=== PATIENT | female | born 1950 | race Hispanic/Latino ===

== ENCOUNTER 2018-01-14 07:32 | Day surgery (SDC) | payer MEDICARE, OTHER ==
[2018-01-05 14:00] VITALS: BMI 20.3
[2018-01-14] MEDS ORDERED: Propofol 10 mg/ml Inj (20 ML) ONE (08:42)
[2018-01-14 10:35] VITALS: BP 140/88; PULSE 61; RESP 18; TEMP 97.6; O2SAT 95
== END 2018-01-14 11:12 | disposition home or self-care (01) ==
LOC: ENDO 07:32
PROVIDERS: ATTEND Specialist
DX: K22.70 Barrett's esophagus without dysplasia (principal); K22.10 Ulcer of esophagus without bleeding; K31.9 Disease of stomach and duodenum, unspecified
CPT/HCPCS: 43239; 88305; 88312; 88342; J2704; J7040

== ENCOUNTER 2018-07-03 03:06 | Emergency (ER) | payer MEDICARE, OTHER ==
[2018-07-03 03:07] VITALS: BMI 20.3
[2018-07-03 03:20] VITALS: TEMP 97.8; O2SAT 100
--- NOTE | 2018-07-03 03:29 | ED PDOC ---
Arrival/HPI - General Chief Complaint: Chest Pain Time Seen by Provider: 07/03/18 03:19 Historian: Patient - History of Present Illness Narrative History of Present Illness (Text): 07/03/18 03:42 68 year old female, with past medical history of COPD, Harmon's esophagus, diverticulosis, IBS, esophageal ulcer and past surgical history of cholecystectomy and mastectomy, presents to the Emergency department accompanied by for evaluation of 2 episodes of sudden chest tightness and pain radiating to both arms and neck at 11 pm yesterday and 1 am this morning. Patient denies similar symptoms in the past prompting her to present to the Emergency department for medical evaluation. Currently, patient informs complete resolved symptoms after taking 4 baby aspirin prior to arrival. Patient denies any associated leg swelling or shortness of breath. Patient states her last meal was at 6pm yesterday. 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 Patient is unable to explain the reason behind the extensive cardiac examinations in the past. Patient denies any fevers, chills, headache, dizziness, shortness of breath, dyspnea on exertion, cough, abdominal pain, nausea, vomiting, diarrhea, back pain, or any other complaints. PMD: Dr. Zhong Time/Duration: Prior to Arrival Symptom Onset: Gradual Symptom Course: Resolved Quality: Tightness Activities at Onset: Light Context: Home Past Medical History - Provider Review Nursing Documentation Reviewed: Yes - Infectious Disease Hx of Infectious Diseases: None - Reproductive Menopause: Yes - Cardiac Hx Pacemaker: No - Pulmonary Hx Chronic Obstructive Pulmonary Disease (COPD): Yes - Neurological Hx Paralysis: No - Hematological/Oncological Hx Blood Transfusions: No Hx Blood Transfusion Reaction: No - Musculoskeletal/Rheumatological Hx Musculoskeletal Disorders: Yes - Gastrointestinal Other/Comment: IBS. Diverticulosis. barrets esophagus - Genitourinary/Gynecological Hx Genitourinary Disorders: No - Psychiatric Hx Emotional Abuse: No Hx Physical Abuse: No Hx Substance Use: No - Surgical History Hx Mastectomy: Yes (R) - Anesthesia Hx Anesthesia Reactions: Yes (GETS SAD & WEEPY; FORGETS PRE OP INSTRUCTIONS) Hx Malignant Hyperthermia: No - Suicidal Assessment Feels Threatened In Home Enviroment: No Family/Social History - Physician Review Nursing Documentation Reviewed: Yes Family/Social History: No Known Family HX Smoking Status: Never Smoked Hx Alcohol Use: Yes (SOCIALLY) Hx Substance Use: No Allergies/Home Meds Allergies/Adverse Reactions: Allergies No Known Allergies Allergy (Verified 07/03/18 03:18) Home Medications: Home Meds Medication Instructions Recorded Confirmed Fluticasone/Salmeterol 100/50 1 puff IH BID 12/06/14 07/03/18 [Advair Diskus 100/50] Montelukast [Singulair] 10 mg PO DAILY 12/06/14 07/03/18 Dexlansoprazole [Dexilant] 60 mg PO DAILY 01/14/18 07/03/18 Review of Systems - Physician Review All systems were reviewed & negative as marked: Yes - Review of Systems Constitutional: absent: Fevers Respiratory: absent: SOB, Cough Cardiovascular: Chest Pain. absent: TOVAR Gastrointestinal: absent: Abdominal Pain, Diarrhea, Nausea, Vomiting Musculoskeletal: Neck Pain. absent: Back Pain Neurological: absent: Headache, Dizziness Physical Exam Vital Signs Reviewed: Yes Vital Signs Temp Pulse Resp BP Pulse Ox 07/03/18 04:53 86 18 134/86 100 07/03/18 03:19 97.8 F 71 13 148/74 100 Temperature: Afebrile Blood Pressure: Normal Pulse: Regular Respiratory Rate: Normal Appearance: Positive for: Well-Appearing, Non-Toxic, Comfortable Pain Distress: None Mental Status: Positive for: Alert and Oriented X 3 - Systems Exam Head: Present: Atraumatic, Normocephalic Pupils: Present: PERRL Extroacular Muscles: Present: EOMI Conjunctiva: Present: Normal Mouth: Present: Moist Mucous Membranes Neck: Present: Normal Range of Motion Respiratory/Chest: Present: Clear to Auscultation, Good Air Exchange. No: Respiratory Distress, Accessory Muscle Use Cardiovascular: Present: Regular Rate and Rhythm, Normal S1, S2. No: Murmurs Abdomen: No: Tenderness, Distention, Peritoneal Signs Breast/Axillary: Present: Other (mastectomy scars bilaterally ) Back: Present: Normal Inspection Upper Extremity: Present: Normal Inspection. No: Cyanosis, Edema Lower Extremity: Present: Normal Inspection. No: Edema Neurological: Present: GCS=15, CN II-XII Intact, Speech Normal Skin: Present: Warm, Dry, Normal Color. No: Rashes Psychiatric: Present: Alert, Oriented x 3, Normal Insight, Normal Concentration Medical Decision Making ED Course and Treatment: 07/03/18 03:54 Impression: 68 year old female presents to the Emergency department for evaluation of sudden onset of chest pain. ?ACS vs GI gerd. No hx of HTN, no current diaphoresis, u/l dissection. Given elevated heart score given hx of abnl stress test, and age as well as story, will likely require obs for ACS r/ u. Cannot perc out but pt is low pretest wells. Will seek dimer. Will hold off on xr until dimer resulted in order to decrease radiation. Plan: -- EKG -- Labs -- Reassess and disposition Prior Visits: Notes and results from previous visits were reviewed. Progress Notes: 07/03/18 03:29 EKG: Ordered, reviewed, and independently interpreted the EKG. Rate : 65 BPM Rhythm : NSR Interpretation : No STEMI. Single t wave inversion in lead III. 07/03/18 04:46 Elevated heart score. Will likely need obs. labs resulted, largely unremarkable- reviewed with patient. Pt states she wants to leave Informed patient about risk of ACS and sudden as well as disability. Pt notes she does not want to stay. She states that it is all gastric. I informed pt that pain could be ACS. Pt notes risk and reiterates that her pain is stomach pain. The patient is choosing to leave against medical advice. I have personally explained to the patient that choosing to do so may result in permanent bodily harm or . I have discussed at great length that without further evaluation and monitoring there may be unforeseen circumstances and/or deterioration causing permanent bodily harm or as a result of their choice. The patient is alert, oriented, and shows the mental capacity to make clear decisions regarding the patients health care at this time. The patient continues to wish to leave against medical advice. In light of the patients decision to leave against medical advice, follow-up has been arranged and the patient is aware of the importance to following up as instructed. The patient has been advised that they should return to the emergency room immediately if they change their mind at any time, or if their condition begins to change or worsen in any way. - Lab Interpretations Lab Results: 07/03/18 03:30 07/03/18 03:30 Lab Results 07/03/18 03:30: D-Dimer, Quantitative < 200 07/03/18 03:30: Sodium 143, Potassium 4.6, Chloride 104, Carbon Dioxide 30, Anion Gap 15, BUN 8, Creatinine 0.7, Est GFR ( Amer) > 60, Est GFR (Non- Af Amer) > 60, Random Glucose 109, Calcium 9.8, Magnesium 1.8, Total Bilirubin 0.4, AST 21, ALT 23, Alkaline Phosphatase 96, Troponin I 0.03, NT-Pro-B Natriuret Pep 399, Total Protein 6.8, Albumin 4.3, Globulin 2.6, Albumin/ Globulin Ratio 1.7, Lipase 62 07/03/18 03:30: WBC 9.5, RBC 4.70, Hgb 14.2, Hct 40.6, MCV 86.4, MCH 30.2, MCHC 35.0, RDW 13.3, Plt Count 206, MPV 9.2, Gran % 67.0, Lymph % (Auto) 24.7, [place]oke % (Auto) 6.9 H, Eos % (Auto) 1.3 L, Baso % (Auto) 0.1, Gran # 6.36, Lymph # ( Auto) 2.3, [place]oke # (Auto) 0.7 H, Eos # (Auto) 0.1, Baso # (Auto) 0.01 - RAD Interpretation Radiology Orders: 07/03/18 04:42 CHEST TWO VIEWS (PA/LAT) [RAD] Stat - Scribe Statement The provider has reviewed the documentation as recorded by the Scribe Loreta Ga. All medical record entries made by the Scribe were at my direction and personally dictated by me. I have reviewed the chart and agree that the record accurately reflects my personal performance of the history, physical exam, medical decision making, and the department course for this patient. I have also personally directed, reviewed, and agree with the discharge instructions and disposition. Disposition/Present on Arrival - Present on Arrival Any Indicators Present on Arrival: No History of DVT/PE: No History of Uncontrolled Diabetes: No Urinary Catheter: No History of Decub. Ulcer: No History Surgical Site Infection Following: None - Disposition Have Diagnosis and Disposition been Completed?: Yes Diagnosis: Chest pain Disposition: AGAINST MEDICAL ADVICE Disposition Time: 04:30 Condition: FAIR Discharge Instructions (ExitCare): Chest Pain (ED) Referrals: Dawson Zhong MD [Primary Care Provider] - Follow up with primary Forms: [employer] (Pashto)
[2018-07-03 03:55] LABS: BASO # 0.01 K/mm3 (0.0-2.0); BASO % 0.1 % (0.0-3.0); EOS # 0.1 (0.0-0.7); EOS % 1.3 % (1.5-5.0); GRAN # 6.36 (1.4-6.5); HEMOGLOBIN 14.2 g/dL (12.0-16.0); LYMPH # 2.3 (1.2-3.4); LYMPH % 24.7 % (22.0-35.0); MEAN CELL VOLUME 86.4 fl (80.0-105.0); MEAN CORPUSCULAR HEMOGLOBIN 30.2 pg (25.0-35.0); MEAN PLATELET VOLUME 9.2 fl (7.0-11.0); MONO # 0.7 (0.1-0.6); MONO % 6.9 % (1.0-6.0); RBC 4.7 10^6/uL (3.5-6.1); RED CELL DISTRIBUTION WIDTH 13.3 % (11.5-14.5); WHITE BLOOD COUNT 9.5 10^3/ul (4.5-11.0)
[2018-07-03 04:00] LABS: ALB/GLOB RATIO 1.7 (1.1-1.8); ALBUMIN 4.3 g/dL (3.0-4.8); ALT/SGPT 23 U/L (7-56); AST/SGOT 21 U/L (14-36); BLOOD UREA NITROGEN 8 mg/dL (7-21); CALCIUM 9.8 mg/dL (8.4-10.5); GFR NON-AFRICAN AMERICAN > 60; LIPASE 62 U/L (23-300)
[2018-07-03 04:10] LABS: B-TYPE NATRIURETIC PEPTIDE 399 pg/mL (0-450); TROPONIN I 0.03 ng/mL
[2018-07-03 04:55] VITALS: BP 134/86; PULSE 86; RESP 18
--- NOTE | 2018-07-03 09:53 | CARD ---
APPROVED REPORT Date of service: 07/03/2018 EKG Measurement Heart [id number] IN [id number] <Conclusion> Normal sinus rhythm Septal infarct, age undetermined LVH by voltage Prolonged QTc
== END 2018-07-03 04:53 | disposition left against medical advice (07) ==
LOC: ED 03:06
DX: R07.9 Chest pain, unspecified (principal)

== ENCOUNTER 2018-07-27 07:05 | Day surgery (SDC) | payer MEDICARE, OTHER ==
--- NOTE | 2018-07-25 02:16 | HP ---
REASON FOR ADMISSION: Chest pain, rule out underlying coronary artery disease for left heart cath, possible angioplasty. BRIEF CLINICAL HISTORY: This is a 68-year-old female with past medical history significant for COPD, hiatal hernia, Harmon's esophagus, history of esophagitis, history of irritable bowel syndrome, admitted for left heart cath with possible angioplasty because the patient keeps on complaining of chest pain. The patient underwent a stress test that is abnormal, so the patient is scheduled for elective cardiac cath with possible angioplasty. PAST MEDICAL HISTORY: Significant for hiatal hernia, Harmon's esophagus, COPD, esophagitis, irritable bowel syndrome. SOCIAL HISTORY: Denies any smoking. Denies any history of alcohol abuse. CURRENT MEDICATIONS: The patient is taking at home; Singulair 10 mg daily, Advair Diskus 1 puff b.i.d., dicyclomine hydrochloride 10 mg p.o. t.i.d., Dexilant 60 mg daily, aspirin 81 mg daily. ALLERGIES: NO KNOWN DRUG ALLERGY. RECENT CARDIAC WORKUP: As follows; the patient had a stress test and the patent walked on the treadmill 5 minutes and 42 seconds. Resting EKG demonstrates normal sinus. During the peak of exercise shows 2-mm ST depression in V5 and V6 consistent with positive for ischemia, also has a stress component nuclear portions with partially reversible apical defect suspicious for ischemia, fixed inferior defect suggestive of myocardial injury, ejection fraction 46%. The patient had also a stress test dated 07/14/2018. The patient also underwent echocardiography dated 07/14/2018 that showed normal LV function, ejection fraction 55%, mild mitral regurgitation, trace pulmonary insufficiency, mild tricuspid regurgitation, aortic valve is calcified, mild possible aortic stenosis versus aortic sclerosis, diastolic dysfunction. REVIEW OF SYSTEMS: As per HPI. PHYSICAL EXAMINATION VITAL SIGNS: Height of the patient is 5 feet 7 inches, weight of the patient is 130 pounds, body mass index 20 kg/sq m. Rest of the examination; heart rate 70, blood pressure 120/80. HEENT: PERRLA. Extraocular muscles intact. NECK: Supple. No carotid bruit, no thyromegaly. CHEST: Clear to auscultation. HEART: S1 and S2 regular. ABDOMEN: Soft. EXTREMITIES: Clubbing and cyanosis negative. LABORATORY DATA: Blood workup is pending. IMPRESSION: A 68-year-old female with past medical history significant for irritable bowel syndrome, hiatal hernia, abnormal stress test, mild mitral regurgitation, mild tricuspid regurgitation, scheduled elective cardiac catheterization, possible angioplasty. We will review the blood work once it is available. Risks, benefits and alternatives were explained to the patient. The patient is agreeable to proceed for cardiac catheterization. Further recommendation after the cardiac catheterization. We will follow with you. Thank you Dr. Zhong for providing us the opportunity in taking care of the patient, Kristal Rushing. Zachary Bronson MD cc: Dawson Zhong MD
[2018-07-27 07:31] LABS: BASO # 0.03 K/mm3 (0.0-2.0); BASO % 0.4 % (0.0-3.0); EOS # 0.1 (0.0-0.7); GRAN # 4.04 (1.4-6.5); GRAN % 57.2 % (50.0-68.0); HEMOGLOBIN 14.2 g/dL (12.0-16.0); LYMPH # 2.3 (1.2-3.4); LYMPH % 32.8 % (22.0-35.0); MEAN CELL VOLUME 88.1 fl (80.0-105.0); MEAN CORPUSCULAR HEMOGLOBIN 30.1 pg (25.0-35.0); MEAN CORPUSCULAR HGB CONC 34.2 g/dl (31.0-37.0); MEAN PLATELET VOLUME 9.2 fl (7.0-11.0); MONO # 0.5 (0.1-0.6); MONO % 7.6 % (1.0-6.0); RBC 4.71 10^6/uL (3.5-6.1); RED CELL DISTRIBUTION WIDTH 13.4 % (11.5-14.5); WHITE BLOOD COUNT 7.1 10^3/ul (4.5-11.0)
[2018-07-27 07:34] VITALS: RESP 20; O2SAT 95
[2018-07-27 07:40] LABS: BLOOD UREA NITROGEN 11 mg/dL (7-21); CALCIUM 9.5 mg/dL (8.4-10.5); GFR NON-AFRICAN AMERICAN > 60; HDL CHOLESTEROL 52 mg/dL (29-60)
[2018-07-27 07:41] LABS: INR 0.95; PARTIAL THROMBOPLASTIN TIME 32.5 Seconds (25.1-36.5); PROTHROMBIN TIME 10.9 SECONDS (9.4-12.5)
[2018-07-27 07:50] LABS: LDL CHOLESTEROL 132 mg/dL (0-129)
[2018-07-27] MEDS ORDERED: Iodixanol 320 MG/ML 200 ML BOTTLE IV ONE (09:48)
[2018-07-27] MEDS ORDERED: Phenylephrine 10 mg/ml Inj ONE (09:48)
[2018-07-27] MEDS ORDERED: Lidocaine PF 2% (5 ml) Inj (For Cardiac Arrhy) ONE (09:48)
[2018-07-27] MEDS ORDERED: Iohexol 350mgl/ml 50 ML ONE (09:48)
[2018-07-27] MEDS ORDERED: Midazolam 2 MG/2 ML VIAL ONE ×2 (10:12→11:14)
[2018-07-27] MEDS ORDERED: Eptifibatide 20 mg/10mL Inj IVP ONE (10:29)
[2018-07-27] MEDS ORDERED: Iodixanol 320 MG/ML 100 ML BOTTLE IV ONE (10:52)
[2018-07-27] MEDS ORDERED: Nitroglycerin 50mg in D5W 50 MG/250 ML BOTTLE IV ONE (11:02)
[2018-07-27] MEDS ORDERED: Sodium Chloride 0.9% 1,000 ML IV SCH (11:45)
[2018-07-27] MEDS ORDERED: Pantoprazole 40 mg EC Tab PO SCH (12:00)
--- NOTE | 2018-07-27 12:21 | CPOSTOP ---
DATE: 07/27/2018 CARDIOVASCULAR LAB POST PROCEDURE NOTE DICTATING PHYSICIAN: Zachary Bronson MD. TECHNOLOGY APPLICATIONS CONSULTANT: Trevor Hoang, donor floor technician. TYPE OF ANESTHESIA: Moderate conscious sedation. Total dose 3 mg of Versed, 100 of fentanyl given. Periodically started at 1 mg of Versed, 50 of fentanyl. PRE-PROCEDURE DIAGNOSES: Unstable angina, abnormal stress test. PROCEDURE PERFORMED: 1. Left heart catheterization. 2. Stenting of Ramus with bare metal stent. 3. Stenting of left anterior descending with drug-eluting stent. FINDINGS: LAD 90% mid stenosis. Ramus intermedius proximal 90% stenosis. RCA total very small vessels, not suitable for CABG. FINAL DIAGNOSIS: Multivessel coronary artery disease small vessels, not suitable for coronary artery bypass graft. POST PROCEDURE CONDITION: Post procedure, the patient's condition is stable. VASCULAR ACCESS SITE: Right femoral artery. CLOSURE DEVICE: Mynx. TOTAL RADIATION DOSE: 14,545.4 milligray unit. TOTAL FLUORO TIME: 18.4 minutes. Zachary Bronson MD
[2018-07-27 12:31] VITALS: TEMP 98.1
[2018-07-27 16:32] LABS: BASO # 0.01 K/mm3 (0.0-2.0); BASO % 0.1 % (0.0-3.0); EOS % 0.6 % (1.5-5.0); GRAN # 4.67 (1.4-6.5); GRAN % 69.3 % (50.0-68.0); HEMOGLOBIN 12.6 g/dL (12.0-16.0); LYMPH # 1.6 (1.2-3.4); LYMPH % 23.3 % (22.0-35.0); MEAN CORPUSCULAR HEMOGLOBIN 29.7 pg (25.0-35.0); MEAN CORPUSCULAR HGB CONC 33.8 g/dl (31.0-37.0); MEAN PLATELET VOLUME 9.2 fl (7.0-11.0); MONO # 0.5 (0.1-0.6); MONO % 6.7 % (1.0-6.0); RBC 4.24 10^6/uL (3.5-6.1); RED CELL DISTRIBUTION WIDTH 13.4 % (11.5-14.5); WHITE BLOOD COUNT 6.7 10^3/ul (4.5-11.0)
[2018-07-27 16:40] LABS: BLOOD UREA NITROGEN 10 mg/dL (7-21); CALCIUM 8.8 mg/dL (8.4-10.5); GFR NON-AFRICAN AMERICAN > 60
--- NOTE | 2018-07-27 17:03 | CARD ---
APPROVED REPORT Date of service: 07/27/2018 Procedure(s) performed: Left Heart Catheterization PTCA with Stenting of Proximal Ramus intermedius with BMS PTCA with Stenting of Mid LAD with ADIRANNE HISTORY The patient is a 68 year-old female with a history of : most recent EF: 46%. (EF Method: RADIONUCLIDE), chronic lung disease, previous diagnostic cath, tobacco history() : The patient is a current smoker , hypertension , hx of COPD, IBS, Hiatal Hernia,Esophagitis and barrets esophagus was c/o Chest pain ( tightness) and had an abnormal Stress myoview test , apiocal ischemia and fixed inferior defect.. INDICATION The indication(s) include : positive stress test, chest pain, dyspnea. CASE TECHNIQUE The patient was brought electively to the Cardiac Catheterization Laboratory in a fasting state and was prepped and draped in a sterile manner. The right femoral groin was infiltrated with 2% Lidocaine subcutaneous anesthesia. A 6 Fr x 11 cm Susanne sheath was inserted into the right femoral artery without difficulty. Coronary angiography was performed using coronary diagnostic catheters. The left coronary system was accessed and visualized with a Diagnostic , 6F JL4 CATH DXT 100 CM catheter. The right coronary system was accessed and visualized with a Diagnostic ,6F JR 4 CATH DXT 100 CM catheter. The left ventricle was accessed and visualized with a 6F PIGTAIL 145 CATH DXT 110 CM catheter. Left ventricular/Aortic Valve gradient assessed on pullback. Left ventriculogram was performed in SMITH projection. Closure device was deployed with a 6 Fr / 7 Fr MynxGrip without any complications. The patient tolerated the procedure well and there were no complications associated with the procedure. Vessel Analysis The patient's coronary anatomy is right dominant. The left main coronary artery is a medium size vessel with diffuse calcification noted throughout this vessel and without significant stenosis. The left main bifurcates to the left anterior descending and circumflex. The left anterior descending artery is a medium size vessel with diffuse calcification noted throughout this vessel and with significant stenosis. There is a 80-90% stenosis in the mid segment. The first diagonal branch is a medium size vessel with diffuse calcification noted throughout this vessel and without significant stenosis. The second diagonal branch is a small size vessel with diffuse calcification noted throughout this vessel and without significant stenosis. The circumflex artery is a small size vessel with diffuse calcification noted throughout this vessel and without significant stenosis. There is a 60-70% stenosis in the proximal segment. The ramus intermedius artery is a medium size vessel with diffuse calcification noted throughout this vessel and with significant stenosis. There is a 90% stenosis in the proximal segment. Distally trifurcate and diffusely diseased The right coronary artery is a medium size vessel with diffuse calcification noted throughout this vessel and with significant stenosis. There is a 99% stenosis in the mid segment. distally RCA is occluded but well collaterralized from LAD Left Ventricle The left ventricle is mildly enlarged in size with Mildly decreased contractility. Ischemic cardiomyopathy. The left ventricular ejection fraction is estimated to be 45%. The left ventricular end diastolic pressure is 15 mmHg. There was no gradient across the aortic valve upon pullback. PCI Technique Lesion Anticoagulation was achieved with Heparin and Integrellin Bolluses. Percutaneous coronary intervention was performed on the ramus intermedius segment. The lesion stenosis prior to intervention was 90% with CHINYERE 2 flow. A 6 Fr XB 3 Guide Catheter was used to engage the ostium. A Luge 182 Interventional Guidewire was used to cross the lesion. BALLOON DILATION A Balloon catheter 2.0 x 15 mm Sprinter RX was inserted and inflated up to 8.00atm for 60seconds. STENT DEPLOYMENT A bare metal stent 2.5 x 8 mm Mini Vision BMS was inserted and inflated up to 10.00atm for 24seconds. Final angiography reveals 0 % stenosis with CHINYERE 3 flow. PCI Technique Lesion 2 Percutaneous Coronary Intervention was performed on the Mid left anterior descending artery segment. The lesion stenosis prior to intervention was 80-90% with CHINYERE 2 flow. A 6 Fr XB 3 Guide Catheter was used to engage the ostium. A Luge 182 Interventional Guidewire was used to cross the lesion. BALLOON DILATION A Balloon catheter 2.0 x 15 mm Sprinter RX was inserted and inflated up to 12.00atm for 25seconds. STENT DEPLOYMENT A drug-eluting stent STENT RESOLUTE CYDNEY 2.75 X22 was inserted and inflated up to 12.00atm for 25seconds. POST STENT DEPLOYMENT BALLOON DILATION A Balloon catheter 3.0 x 15 mm Trek RX NC was inserted and inflated up to 15.00atm for 20seconds. Final angiography reveals 0 % stenosis with CHINYERE 3 flow. Conclusion [place] triple vessel Diz. Mildly decreased LV Fx. Ef-45%, EDp-18 mmof Hg. RCA APPLIED PSYCHOLOGY CHAIR but well collateralized from LAD Distal Vessels , all are very small not suitable for CABG, High risk for post op Grafts occlusion Initial plan was to Put Bare metal stent B/c of esophagitis, But B/c of complexities of LAD lesion ... ADRIANNE Deployed. Successful PTCA with short BMS in Ramus intermedius and PTCA with ADRIANNE in Mid LAD. Recommendations Smoking Cessation Daily ASA with Plavix for at least one year Aggressive Medical TherapyCardiac Risk Reduction Program Weight Loss Reduction Program Re assess tolerance of Dual Antiplatelets therapy in esophagitis, Add Coreg 3.125 Bid and lipitor 40 mg po daily in Current regimen. If Dual antiplatelets can be tolerated then will adrianna. complex PTCA of RCA( APPLIED PSYCHOLOGY CHAIR), otherwise treat medically, Tentatively adrianna for 08/27/2018 at 7:30 am Cc; Trina Zhong/ danielle
[2018-07-27 17:43] VITALS: BP 141/69; PULSE 75
[2018-07-27] MEDS ORDERED: Fluticasone-Salmeterol 100-50mcg Diskus IH SCH (18:00)
[2018-07-27] MEDS ORDERED: Arformoterol 15 mcg/2 ml Inh Sol IH SCH (20:00)
[2018-07-27] MEDS ORDERED: Budesonide 0.25 mg/2 ml Inhal Susp UD IH SCH (20:00)
--- NOTE | 2018-07-28 09:17 | CARD ---
APPROVED REPORT Date of service: 07/27/2018 EKG Measurement Heart [id number] <Conclusion> Sinus bradycardia PRWP New T wave abnormality, consider inferior ischemia
== END 2018-07-27 18:52 | disposition home or self-care (01) ==
LOC: CATH 07:05 → 2RSO 11:42 → CATH 18:52
PROVIDERS: ATTEND Internal Medicine Cardiovascular Disease
DX: I25.110 Atherosclerotic heart disease of native coronary artery with unstable angina pectoris (principal); I10 Essential (primary) hypertension; I25.5 Ischemic cardiomyopathy; I25.82 Chronic total occlusion of coronary artery; J44.9 Chronic obstructive pulmonary disease, unspecified; I08.1 Rheumatic disorders of both mitral and tricuspid valves; K20.9 Esophagitis, unspecified; K22.70 Barrett's esophagus without dysplasia; K44.9 Diaphragmatic hernia without obstruction or gangrene; K58.9 Irritable bowel syndrome, unspecified; Z79.82 Long term (current) use of aspirin; F17.200 Nicotine dependence, unspecified, uncomplicated
CPT/HCPCS: 36415; 80048; 80061; 85025; 85175; 85610; 85730; 86850; 86900; 93005; 93458; 99152; 99153; C1725 ×2; C1760; C1769 ×2; C1874; C1876; C1887; C2629; C9600; C9601; J1327; J1644 ×2; J2250; J3010; J7030; J7040; Q9966; Q9967 ×2

== ENCOUNTER 2018-09-10 06:28 | Observation (INO) | payer MEDICARE, OTHER ==
[2018-08-28 13:30] VITALS: BMI 19.5
--- NOTE | 2018-09-10 04:41 | HP ---
DATE OF EXAM: 09/09/2018 REASON FOR ADMISSION: PTCA staged (of right coronary artery). BRIEF CLINICAL HISTORY: This is a 68-year-old female with past medical history significant for COPD, hiatal hernia, Harmon esophagus, history of esophagitis, history of irritable bowel syndrome, who initially admitted on 07/27/2018 for left heart catheterization and subsequently, the patient underwent a stenting of proximal ramus intermedius with bare-metal stent and RELIEF MAP MODELER stenting of mid LAD with complex ADRIANNE. Now, the patient admitted today for a staged angioplasty of right coronary artery, which is GRAPHICS ARTIST. PAST MEDICAL HISTORY: Significant for hiatal hernia, Harmon esophagus, COPD, esophagitis, and irritable bowel syndrome. SOCIAL HISTORY: Denies any smoking. Denies any history of alcohol abuse. CURRENT MEDICATION: The patient is taking at home, Singulair, Bentyl, diclofenac, Voltaren gel, Dexilant, Plavix 75 mg daily, Coreg 3.125, atorvastatin 40, and aspirin 81 mg daily. ALLERGIES: NO KNOWN DRUG ALLERGIES. Recent cardiac workup as follows: The patient had a cardiac catheterization dated 07/27/2018 that revealed galena triple vessel disease, mildly decreased left ventricular function, ejection fraction 45%, EDP was in the range of 17, RCA total but well from LAD, distal vessels are very small not suitable for CABG, high risk for postop graft occlusion. Initial plan was that the bare-metal stent because of the complexity of LAD bare-metal stent was deployed and the plan was to assess whether the patient can tolerate dual antiplatelet therapy since the patient started, the patient admitted today for staged attempt for PTCA of RCA for chronic total occlusion. Prior to that, the patient had abnormal stress test stress test. The patient had echocardiography done on 07/14/2012 that shows normal LV function, ejection fraction 55%, mild mitral regurgitation, trace pulmonary insufficiency, mild tricuspid regurgitation. Aortic valve is calcified, mild possible aortic stenosis. No gradient across the aortic valve noted on cardiac catheterization. The patient had a treadmill done, walked 5 minutes and 42 seconds. Resting EKG demonstrates normal sinus. During the peak of exercise, it shows 2-mm ST depression in V5 and V6 and positive ischemia. Also the stress component portion, partially reversible apical suspicious for ischemia that was dated 07/14/2018 that prompted cardiac catheterization. PHYSICAL EXAMINATION VITAL SIGNS: Height of the patient is 5 feet 7 inches, weight of the patient is 125 pounds, body mass index 19 kg/sq m. Rest of the vitals; temperature afebrile, heart rate 80, blood pressure 130/80. HEENT: PERRLA intact. NECK: Supple. No carotid bruit, no thyromegaly. CHEST: Clear to auscultation. HEART: S1 and S2 regular. ABDOMEN: Soft. EXTREMITIES: Clubbing and cyanosis negative. IMPRESSION: A 68-year-old female with past medical history significant for hyperlipidemia, hypertension, history of coronary artery disease, status post percutaneous transluminal coronary angioplasty of left anterior descending and ramus intermedius with bare-metal stent, left anterior descending is complex, has drug-eluting stent. The patient well tolerated, last time was seen on 08/12/2018. PLAN: So the plan is to continue dual antiplatelet therapy and scheduled for PTCA of RCA attempt. Further recommendation after the cardiac catheterization. We will follow with you. Thank you, Dr. Zhong for providing us the opportunity in taking care of the patient, Kristal Rushing. Zachary Bronson MD
[2018-09-10] MEDS ORDERED: Lidocaine 2% Inj (20ml) ONE (06:38)
[2018-09-10] MEDS ORDERED: Phenylephrine 10 mg/ml Inj ONE (06:39)
[2018-09-10] MEDS ORDERED: Nitroglycerin 50mg in D5W 50 MG/250 ML BOTTLE IV ONE ×2 (06:39→08:57)
[2018-09-10] MEDS ORDERED: Iodixanol 320 MG/ML 100 ML BOTTLE IV ONE (06:39)
[2018-09-10] MEDS ORDERED: Iohexol 350mgl/ml 50 ML ONE (06:39)
[2018-09-10] MEDS ORDERED: Iodixanol 320 MG/ML 200 ML BOTTLE IV ONE (06:39)
[2018-09-10 07:06] LABS: BASO # 0.01 K/mm3 (0.0-2.0); BASO % 0.2 % (0.0-3.0); EOS # 0.1 (0.0-0.7); EOS % 2.2 % (1.5-5.0); GRAN # 3.54 (1.4-6.5); GRAN % 58.6 % (50.0-68.0); HEMOGLOBIN 13.3 g/dL (12.0-16.0); LYMPH # 1.8 (1.2-3.4); LYMPH % 30.2 % (22.0-35.0); MEAN CELL VOLUME 87.9 fl (80.0-105.0); MEAN CORPUSCULAR HEMOGLOBIN 29.7 pg (25.0-35.0); MEAN CORPUSCULAR HGB CONC 33.8 g/dl (31.0-37.0); MEAN PLATELET VOLUME 9.2 fl (7.0-11.0); MONO # 0.5 (0.1-0.6); MONO % 8.8 % (1.0-6.0); RBC 4.48 10^6/uL (3.5-6.1); RED CELL DISTRIBUTION WIDTH 13.6 % (11.5-14.5)
[2018-09-10 07:15] LABS: BLOOD UREA NITROGEN 13 mg/dL (7-21); CALCIUM 9.2 mg/dL (8.4-10.5); GFR NON-AFRICAN AMERICAN > 60; HDL CHOLESTEROL 48 mg/dL (29-60)
[2018-09-10 07:17] LABS: INR 0.98; PROTHROMBIN TIME 11.3 SECONDS (9.4-12.5)
[2018-09-10 07:25] LABS: LDL CHOLESTEROL 68 mg/dL (0-129)
[2018-09-10] MEDS ORDERED: Potassium Chloride 20 mEq ER Tab PO ONE (07:32)
[2018-09-10] MEDS ORDERED: Midazolam 2 MG/2 ML VIAL ONE ×2 (07:45→08:18)
[2018-09-10] MEDS ORDERED: Eptifibatide 20 mg/10mL Inj IVP ONE (07:58)
[2018-09-10] MEDS ORDERED: Morphine 2 mg/ml ISec ONE ×2 (08:47→08:51)
[2018-09-10] MEDS ORDERED: Sodium Chloride 0.9% 1,000 ML IV SCH (09:30)
[2018-09-10] MEDS ORDERED: Nitroglycerin 50mg in D5W 50 MG/250 ML BOTTLE IV PRN (09:44)
[2018-09-10] MEDS ORDERED: Morphine 2 mg/ml ISec IVP STA (09:45)
--- NOTE | 2018-09-10 09:56 | CARD ---
APPROVED REPORT Date of service: 09/10/2018 EKG Measurement Heart [id number] <Conclusion> Sinus bradycardia Nonspecific T wave abnormality Abnormal ECG
[2018-09-10] MEDS ORDERED: DICLOFENAC SODIUM 75 MG PO PRN (10:00)
[2018-09-10] MEDS ORDERED: Fluticasone-Salmeterol 100-50mcg Diskus IH SCH (10:00)
[2018-09-10] MEDS ORDERED: Pantoprazole 40 mg EC Tab PO SCH (10:00)
--- NOTE | 2018-09-10 10:24 | CPOSTOP ---
DATE: 09/10/2018 CARDIOVASCULAR LAB POSTPROCEDURE NOTE DICTATING PHYSICIAN: Zachary Bronson MD. MANAGER CREATIVE: Madonna Hoang, pulmonology technician. TYPE OF ANESTHESIA: Moderate conscious sedation. Total 2 mg of Versed, 100 of fentanyl, and 2 mg of morphine given. Periodically started 1 mg of Versed, 50 of fentanyl. PRE-PROCEDURE DIAGNOSES: Unstable angina, coronary artery disease, for staged percutaneous transluminal coronary angioplasty of right coronary artery. PROCEDURE PERFORMED: Complete left heart catheterization and plain balloon angioplasty of right coronary artery. FINDINGS: RCA 100% occluded, mid, and PDA 100% occluded. FINAL DIAGNOSES: Single-vessel disease, patent stent in left anterior descending, patent stent in circumflex. POSTPROCEDURE CONDITION: Post procedure, the patient's condition is fair. VASCULAR ACCESS SITE: Right femoral area. CLOSURE DEVICE: Mynx. TOTAL RADIATION DOSE: 21,089.00 milligray unit. TOTAL FLUORO TIME: 15.2 minutes. Zachary Bronson MD
[2018-09-10] MEDS ORDERED: Morphine 2 mg/ml ISec IVP PRN (12:09)
--- NOTE | 2018-09-10 12:20 | PN ---
DATE: 09/10/2018 The patient was seen in the ICU, feels okay, early he was complaining of the chest pain. BRIEF CLINICAL HISTORY: This is a 68-year-old female with past medical history significant for coronary artery disease status post stent in LAD, complex coronary intervention with drug-eluting stent and ramus intermedius bare-metal stent 4 weeks ago. Today, brought for a staged PTCA of RCA with totally occluded collateralized from RCA. The patient underwent left heart catheterization and then attempted PTCA of mid RCA. Please see the detailed cath report. Successfully, mid RCA was crossed. Distal RCA including PDA could not be crossed. Some staining noted, possible cap dissection. So, the patient was complaining of the chest pain, so multiple pictures were taken. No evidence of tamponade. Then pictures of the left coronary injection was taken because the patient is complaining of chest pain, looks widely patent. Before this happened, also left picture was taken, shows some haziness in the left main, so again left main was engaged and picture was taken, remains brisk CHINYERE III flow and no haziness noted. Bedside stat echo in the cath lab manager was done to rule out any pericardial tamponade. No evidence of tamponade. No evidence of pericardial effusion noted. The patient is stable. PLAN: To admit to ICU for observation 4 to 6 hours and then we will transfer to tele. The patient was started on Tridil drip at 20 mcg, the blood pressure is 200. Now the blood pressure is 130s. So, we will discontinue Tridil. Continue IV fluid and keep in observation in ICU for 4 hours. Further recommendation depending upon hospital course. We will follow with you. Family, Chuy Rushing has been notified on the telephone number, [phone]. Zachary Bronson MD
[2018-09-10 12:48] VITALS: TEMP 97.6
[2018-09-10 15:08] LABS: BASO # 0.01 K/mm3 (0.0-2.0); BASO % 0.2 % (0.0-3.0); EOS % 0.7 % (1.5-5.0); GRAN # 4.4 (1.4-6.5); HEMOGLOBIN 11.4 g/dL (12.0-16.0); LYMPH # 1.2 (1.2-3.4); LYMPH % 18.8 % (22.0-35.0); MEAN CELL VOLUME 90.2 fl (80.0-105.0); MEAN CORPUSCULAR HEMOGLOBIN 30.3 pg (25.0-35.0); MEAN CORPUSCULAR HGB CONC 33.6 g/dl (31.0-37.0); MEAN PLATELET VOLUME 9.4 fl (7.0-11.0); MONO # 0.5 (0.1-0.6); MONO % 8.3 % (1.0-6.0); RBC 3.76 10^6/uL (3.5-6.1); RED CELL DISTRIBUTION WIDTH 13.5 % (11.5-14.5); WHITE BLOOD COUNT 6.1 10^3/uL (4.5-11.0)
[2018-09-10 15:09] LABS: BLOOD UREA NITROGEN 9 mg/dL (7-21); CALCIUM 8.2 mg/dL (8.4-10.5); GFR NON-AFRICAN AMERICAN > 60
--- NOTE | 2018-09-10 15:36 | CARD ---
APPROVED REPORT Date of service: 09/10/2018 EKG Measurement Heart [id number] <Conclusion> Normal sinus rhythm Marked ST abnormality, possible inferior subendocardial injury Prolonged QT Abnormal ECG
--- NOTE | 2018-09-10 17:34 | CP.PCM.CON ---
<Emanuel Crespo - Last Filed: 09/10/18 17:47> History of Present Illness - History of Present Illness History of Present Illness: CRITICAL CARE PROGRESS NOTE FOR DR. 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 Pt underwent LHC and plain balloon angioplasty of RCA. She presented to ICU for monitoring after episodes of sub- sternal chest pain with associated back pain with significant relief with nitroglycerin. Dr. Bronson was made aware, and saw the patient in the ICU. Nitroglycerin drip was started and EKG was ordered. She denied fevers, chills, headache, dizziness, nausea, vomiting, dysuria. PMHx: Hiatal hernia, barakat esophagus, COPD, esophagitis, IBS All: NKDA PSH: denies smoking, alcohol use Meds: singulair, bentyl, diclofenac, voltaren, dexilant, plavix, coreg 3.125, atorvastatin 40, aspirin 81 Review of Systems - Review of Systems Review of Systems: per HPI Past Patient History - Infectious Disease Hx of Infectious Diseases: None - Past Social History Smoking Status: Never Smoked - CARDIAC Hx Pacemaker: No - PULMONARY Hx Chronic Obstructive Pulmonary Disease (COPD): Yes - NEUROLOGICAL Hx Paralysis: No - HEMATOLOGICAL/ONCOLOGICAL Hx Blood Transfusions: No Hx Blood Transfusion Reaction: No - MUSCULOSKELETAL/RHEUMATOLOGICAL Hx Musculoskeletal Disorders: Yes - GASTROINTESTINAL Other/Comment: IBS. Diverticulosis. barrets esophagus - GENITOURINARY/GYNECOLOGICAL Hx Genitourinary Disorders: No - PSYCHIATRIC Hx Emotional Abuse: No Hx Physical Abuse: No Hx Substance Use: No - SURGICAL HISTORY Hx Surgeries: Yes - ANESTHESIA Hx Anesthesia Reactions: Yes (GETS SAD & WEEPY; FORGETS PRE OP INSTRUCTIONS) Hx Malignant Hyperthermia: No Meds Allergies/Adverse Reactions: Allergies Allergy/AdvReac Type Severity Reaction Status Date / Time No Known Allergies Allergy Verified 07/03/18 03:18 - Medications Medications: Current Medications Arformoterol Tartrate (Brovana) 15 mcg IH [id number] [facility] Aspirin (Ecotrin) 81 mg PO DAILY [facility] Atorvastatin Calcium (Lipitor) 40 mg PO DIN [facility] Budesonide (Pulmicort Respules) 0.25 mg IH [id number] [facility] Carvedilol (Coreg) 3.125 mg PO BID [facility] Last Admin: 09/10/18 11:22 Dose: Not Given Clopidogrel Bisulfate (Plavix) 75 mg PO DAILY [facility] Dicyclomine HCl (Bentyl) 10 mg PO TID PRN PRN Reason: GI distress Sodium Chloride (Sodium Chloride 0.9%) 1,000 mls @ 50 mls/hr IV .Q20H [facility] Stop: 09/10/18 19:00 Nitroglycerin/Dextrose (Nitroglycerin 50 Mg/250 Ml D5w) 50 mg in 250 mls @ 3 mls/hr IV .Q24H PRN; Protocol PRN Reason: Pain, severe (8-10) Last Titration: 09/10/18 12:05 Dose: 33.33 mcg/min, 10 mls/hr Isosorbide Mononitrate (Imdur Er) 30 mg PO DAILY [facility] Last Admin: 09/10/18 11:10 Dose: Not Given Montelukast Sodium (Singulair) 10 mg PO DAILY [facility] Last Admin: 09/10/18 11:32 Dose: Not Given Morphine Sulfate (Morphine) 2 mg IVP Q4H PRN PRN Reason: Pain Diclofenac Sodium [ Voltaren] 75 Mg ( Home) 75 mg PO DAILY PRN PRN Reason: Pain, severe (8-10) Pantoprazole Sodium (Protonix Ec Tab) 40 mg PO DAILY [facility] Last Admin: 09/10/18 11:10 Dose: Not Given Physical Exam - Constitutional Appears: Well, Non-toxic, No Acute Distress - Head Exam Head Exam: ATRAUMATIC, NORMAL INSPECTION - Eye Exam Eye Exam: EOMI, Normal appearance - ENT Exam ENT Exam: Mucous Membranes Moist, Normal Exam - Neck Exam Neck exam: Positive for: Normal Inspection - Respiratory Exam Respiratory Exam: Clear to Auscultation Bilateral, NORMAL BREATHING PATTERN - Cardiovascular Exam Cardiovascular Exam: REGULAR RHYTHM, +S1, +S2 - GI/Abdominal Exam GI & Abdominal Exam: Soft. absent: Distended - Extremities Exam Extremities exam: Positive for: normal inspection. Negative for: calf tenderness - Back Exam Back exam: NORMAL INSPECTION - Neurological Exam Neurological exam: Alert, Oriented x3 - Psychiatric Exam Psychiatric exam: Normal Affect, Normal Mood - Skin Skin Exam: Dry, Intact, Warm Additional comments: R femoral dressing in place. No signs of hematoma. Results - Vital Signs Recent Vital Signs: Last Vital Signs Temp 97.6 F 09/10/18 10:38 Pulse 46 L 09/10/18 11:08 Resp 14 09/10/18 11:08 BP 121/57 L 09/10/18 11:08 Pulse Ox 100 09/10/18 11:08 - Labs Result Diagrams: 09/10/18 14:45 09/10/18 14:45 Labs: Laboratory Results - last 24 hr 09/10/18 09/10/18 09/10/18 06:30 06:45 06:45 WBC 6.0 RBC 4.48 Hgb 13.3 Hct 39.4 MCV 87.9 MCH 29.7 MCHC 33.8 RDW 13.6 Plt Count 180 MPV 9.2 Gran % 58.6 Lymph % (Auto) 30.2 Yates % (Auto) 8.8 H Eos % (Auto) 2.2 Baso % (Auto) 0.2 Gran # 3.54 Lymph # (Auto) 1.8 Yates # (Auto) 0.5 Eos # (Auto) 0.1 Baso # (Auto) 0.01 PT INR APTT Sodium 140 Potassium 3.4 L Chloride 104 Carbon Dioxide 30 Anion Gap 10 BUN 13 Creatinine 0.6 L Est GFR ( Amer) > 60 Est GFR (Non-Af Amer) > 60 Random Glucose 99 Calcium 9.2 Troponin I Triglycerides 94 Cholesterol 129 L LDL Cholesterol Direct 68 HDL Cholesterol 48 Blood Type O POSITIVE Antibody Screen Negative BBK History Checked Patient has bt 09/10/18 09/10/18 09/10/18 06:45 11:00 14:45 WBC 6.1 RBC 3.76 Hgb 11.4 L Hct 33.9 L MCV 90.2 MCH 30.3 MCHC 33.6 RDW 13.5 Plt Count 151 MPV 9.4 Gran % 72.0 H Lymph % (Auto) 18.8 L Yates % (Auto) 8.3 H Eos % (Auto) 0.7 L Baso % (Auto) 0.2 Gran # 4.40 Lymph # (Auto) 1.2 Yates # (Auto) 0.5 Eos # (Auto) 0.0 Baso # (Auto) 0.01 PT 11.3 INR 0.98 APTT 32.0 Sodium Potassium Chloride Carbon Dioxide Anion Gap BUN Creatinine Est GFR ( Amer) Est GFR (Non-Af Amer) Random Glucose Calcium Troponin I 0.03 Triglycerides Cholesterol LDL Cholesterol Direct HDL Cholesterol Blood Type Antibody Screen BBK History Checked 09/10/18 14:45 WBC RBC Hgb Hct MCV MCH MCHC RDW Plt Count MPV Gran % Lymph % (Auto) Yates % (Auto) Eos % (Auto) Baso % (Auto) Gran # Lymph # (Auto) Yates # (Auto) Eos # (Auto) Baso # (Auto) PT INR APTT Sodium 140 Potassium 3.6 Chloride 109 H Carbon Dioxide 26 Anion Gap 9 L BUN 9 Creatinine 0.6 L Est GFR ( Amer) > 60 Est GFR (Non-Af Amer) > 60 Random Glucose 183 H Calcium 8.2 L Troponin I Triglycerides Cholesterol LDL Cholesterol Direct HDL Cholesterol Blood Type Antibody Screen BBK History Checked Assessment & Plan - Assessment and Plan (Free Text) Assessment: 68 y/o F with PMHx of CAD, COPD, HLD, HTN, hiatal hernia, barakat esophagus, hx of esophagitis, IBS admitted to ICU s/p complete LHC and plain balloon angioplasty of RCA. Plan: Chest pain s/p complete LHC and plain balloon angioplasty of RCA admit to ICU for 4-6 hours Start Tridil drip at 20mcg aspirin lipitor carvedilol plavix po isosorbide morphine prn Maintain MAP>65 Continue IV NS @50mls/hr trend troponins Further recs per sandblaster supervisor, Dr. Bronson Hx of COPD arformoterol budesonide singulair Hx of IBS bentyl Dispo: Per cardiology recs, admit to ICU for 4-6 hours, then transfer to telemetry. Vital signs stable, pt is hemodynamically stable. She no longer requires ICU care. Re-consult if necessary Further recs per Dr. Bronson, sandblaster supervisor Case seen, examined and discussed with attending physician Dr. Dominguez. <Mike Dominguez - Last Filed: 09/11/18 10:20> Meds - Medications Medications: Current Medications Arformoterol Tartrate (Brovana) 15 mcg IH [id number] [facility] Last Admin: 09/11/18 07:27 Dose: Not Given Aspirin (Ecotrin) 81 mg PO DAILY [facility] Atorvastatin Calcium (Lipitor) 40 mg PO DIN [facility] Last Admin: 09/10/18 17:51 Dose: 40 mg Budesonide (Pulmicort Respules) 0.25 mg IH [id number] [facility] Last Admin: 09/11/18 07:27 Dose: Not Given Carvedilol (Coreg) 3.125 mg PO BID [facility] Last Admin: 09/10/18 17:51 Dose: 3.125 mg Clopidogrel Bisulfate (Plavix) 75 mg PO DAILY [facility] Dicyclomine HCl (Bentyl) 10 mg PO TID PRN PRN Reason: GI distress Nitroglycerin/Dextrose (Nitroglycerin 50 Mg/250 Ml D5w) 50 mg in 250 mls @ 3 mls/hr IV .Q24H PRN; Protocol PRN Reason: Pain, severe (8-10) Last Titration: 09/10/18 12:05 Dose: 33.33 mcg/min, 10 mls/hr Isosorbide Mononitrate (Imdur Er) 30 mg PO DAILY [facility] Last Admin: 09/10/18 11:10 Dose: Not Given Montelukast Sodium (Singulair) 10 mg PO DAILY [facility] Last Admin: 09/10/18 11:32 Dose: Not Given Morphine Sulfate (Morphine) 2 mg IVP Q4H PRN PRN Reason: Pain Nitroglycerin (Nitro-Bid 2% Oint) 0.5 ea TOP Q6H [facility] Last Admin: 09/11/18 05:53 Dose: 0.5 ea Diclofenac Sodium [ Voltaren] 75 Mg ( Home) 75 mg PO DAILY PRN PRN Reason: Pain, severe (8-10) Pantoprazole Sodium (Protonix Ec Tab) 40 mg PO DAILY [facility] Last Admin: 09/10/18 11:10 Dose: Not Given Results - Vital Signs Recent Vital Signs: Last Vital Signs Temp 97.6 F 09/10/18 10:38 Pulse 61 09/11/18 08:30 Resp 58 H 09/11/18 08:30 BP 120/50 L 09/11/18 06:00 Pulse Ox 92 L 09/11/18 07:30 - Labs Result Diagrams: 09/11/18 05:30 09/11/18 05:30 Labs: Laboratory Results - last 24 hr 09/10/18 09/10/18 09/10/18 11:00 14:45 14:45 WBC 6.1 RBC 3.76 Hgb 11.4 L Hct 33.9 L MCV 90.2 MCH 30.3 MCHC 33.6 RDW 13.5 Plt Count 151 MPV 9.4 Gran % 72.0 H Lymph % (Auto) 18.8 L Yates % (Auto) 8.3 H Eos % (Auto) 0.7 L Baso % (Auto) 0.2 Gran # 4.40 Lymph # (Auto) 1.2 Yates # (Auto) 0.5 Eos # (Auto) 0.0 Baso # (Auto) 0.01 Sodium 140 Potassium 3.6 Chloride 109 H Carbon Dioxide 26 Anion Gap 9 L BUN 9 Creatinine 0.6 L Est GFR ( Amer) > 60 Est GFR (Non-Af Amer) > 60 Random Glucose 183 H Calcium 8.2 L Troponin I 0.03 09/10/18 09/11/18 09/11/18 17:00 05:30 05:30 WBC RBC Hgb Hct MCV MCH MCHC RDW Plt Count MPV Gran % Lymph % (Auto) Yates % (Auto) Eos % (Auto) Baso % (Auto) Gran # Lymph # (Auto) Yates # (Auto) Eos # (Auto) Baso # (Auto) Sodium 139 Potassium 4.1 Chloride 107 Carbon Dioxide 30 Anion Gap 7 L BUN 7 Creatinine 0.6 L Est GFR ( Amer) > 60 Est GFR (Non-Af Amer) > 60 Random Glucose 94 Calcium 8.5 Troponin I 0.13 H* D 0.12 09/11/18 05:30 WBC 5.9 RBC 3.65 Hgb 11.1 L Hct 33.2 L MCV 91.0 MCH 30.4 MCHC 33.4 RDW 13.7 Plt Count 152 MPV 9.7 Gran % Lymph % (Auto) Yates % (Auto) Eos % (Auto) Baso % (Auto) Gran # Lymph # (Auto) Yates # (Auto) Eos # (Auto) Baso # (Auto) Sodium Potassium Chloride Carbon Dioxide Anion Gap BUN Creatinine Est GFR ( Amer) Est GFR (Non-Af Amer) Random Glucose Calcium Troponin I Addendum Addendum: 09/10/18 19:18 MICU Attending addendum for 09/10: Pt seen and examined agree with housestaff note above with the following add/except 68 F with PMHx of CAD, COPD, HLD, HTN, hiatal hernia, barakat esophagus, admitted to ICU s/p cardiac cath and balloon angioplasty of RCA. hemoduynamically stable chest pain resolved cont to monitor in ICU and traansfer as per cardio on aspirin lipitor carvedilol plavix po isosorbide rest of cardiac plan as per Dr Audie Jett MD MICU Attending
--- NOTE | 2018-09-10 18:51 | CARD ---
APPROVED REPORT Date of service: 09/10/2018 EXAM: Two-dimensional and M-mode echocardiogram with Doppler and color Doppler. INDICATION Pericardial Effusion 2D DIMENSIONS Left Atrium (2D)2.9 (1.6-4.0cm)IVSd1.2 (0.7-1.1cm) LVDd5.2 (3.9-5.9cm)PWd1.3 (0.7-1.1cm) LVDs4.3 (2.5-4.0cm)FS (%) 17.0 % LVEF (%)35.6 (>50%) Aortic Valve AoV Peak Nfyevvuf432.0cm/Julien Peak GR.15mmHg Mitral Valve E/A ratio0.0 TDI E/Lateral E'0.0E/Medial E'0.0 Tricuspid Valve TR Peak [id number] [id number] Peak Gr.15mmHg [id number] LEFT VENTRICLE The left ventricle is normal size. There is mild concentric left ventricular hypertrophy. The systolic function is moderately impaired.EF-35% There is mild hypokinesis in the mid-inferolateral wall. Transmitral Doppler flow pattern is Grade III-reversible restrictive diastolic dysfunction. No left ventricle thrombus noted on this study. There is no ventricular septal defect visualized. There is no left ventricular aneurysm. There is no mass noted in the left ventricle. RIGHT VENTRICLE The right ventricle is normal size. There is normal right ventricular wall thickness. The right ventricular systolic function is normal. ATRIA The left atrium size is normal. The right atrium size is normal. The interatrial septum is intact with no evidence for an atrial septal defect. AORTIC VALVE The aortic valve is calcified and displays decreased opening. There is trace aortic regurgitation. Aortic sclerosis Vs mild There is no aortic valvular vegetation. MITRAL VALVE The mitral valve is thickened but opens well. Mitral regurgitation is mild to moderate. There is no mitral valve stenosis. There is no evidence of mitral valve prolapse. TRICUSPID VALVE The tricuspid valve leaflets are thickened , but open well. There is trace to mild tricuspid regurgitation.RVSP-25 mmof Hg There is no tricuspid valve stenosis. There is no tricuspid valve prolapse or vegetation. PULMONIC VALVE The pulmonary valve is normal in structure. There is no pulmonic valvular regurgitation. There is no pulmonic valvular stenosis. GREAT VESSELS The aortic root is normal in size. The ascending aorta is normal in size. The pulmonary artery is normal. The IVC is normal in size and collapses >50% with inspiration. PERICARDIAL EFFUSION There is no pleural effusion. There is no pericardial effusion. <Conclusion> Normal Chamber Size. EF-35% There is trace aortic regurgitation. Mitral regurgitation is mild to moderate. There is trace to mild tricuspid regurgitation.RVSP-25 mmof Hg There is no pericardial effusion. The IVC is normal in size and collapses >50% with inspiration. STAT ECHo in Head Up Operator After PCI to R/o pericardial effusin
[2018-09-10] MEDS: Nitroglycerin 2% Ointment Foilpak UD TOP SCH (18:56)
[2018-09-10] MEDS: Budesonide 0.25 mg/2 ml Inhal Susp UD IH SCH (20:26)
[2018-09-10] MEDS: Arformoterol 15 mcg/2 ml Inh Sol IH SCH (20:26)
[2018-09-11] MEDS: Nitroglycerin 2% Ointment Foilpak UD TOP SCH ×2 (05:53)
[2018-09-11 07:13] LABS: HEMOGLOBIN 11.1 g/dL (12.0-16.0); MEAN CORPUSCULAR HEMOGLOBIN 30.4 pg (25.0-35.0); MEAN CORPUSCULAR HGB CONC 33.4 g/dl (31.0-37.0); MEAN PLATELET VOLUME 9.7 fl (7.0-11.0); RBC 3.65 10^6/uL (3.5-6.1); RED CELL DISTRIBUTION WIDTH 13.7 % (11.5-14.5); WHITE BLOOD COUNT 5.9 10^3/uL (4.5-11.0)
[2018-09-11] MEDS: Budesonide 0.25 mg/2 ml Inhal Susp UD IH SCH (07:27)
[2018-09-11] MEDS: Arformoterol 15 mcg/2 ml Inh Sol IH SCH (07:27)
[2018-09-11 07:34] LABS: BLOOD UREA NITROGEN 7 mg/dL (7-21); CALCIUM 8.5 mg/dL (8.4-10.5); GFR NON-AFRICAN AMERICAN > 60
[2018-09-11 08:36] VITALS: BP 120/50; PULSE 61; RESP 58; O2SAT 92
--- NOTE | 2018-09-11 08:40 | CARDCATH ---
PROCEDURE DATE: 09/10/2018 TYPE OF PROCEDURE: Cardiac laboratory cureman procedure, cardiac cath/angioplasty. SCHEDULING: Elective. PERFORMING PHYSICIAN: Zachary Bronson MD. RAILROAD CROSSING PROTECTION MAINTAINER: Madonna Hoang, signals collection technician. PROCEDURE PERFORMED: 1. Complete left heart catheterization. 2. Plain balloon angioplasty of mid right coronary artery. BRIEF CLINICAL HISTORY: This is a 68-year-old female with past medical history significant for coronary artery disease, status post PTCA of LAD and ramus intermedius 4 weeks ago. Now, the patient is brought for PTCA of totally occluded mid and distal RCA and RPDA. Risks, benefits, alternatives explained to the patient, the patient agreed. DESCRIPTION OF PROCEDURE: The patient was placed supine on the cath table. Then, access obtained with Seldinger technique using micropuncture needle, right femoral access. Then, 2500 heparin was given and left and right Xiao catheter and pigtail catheter used for coronary angiography. FINDINGS: Left main essentially free of significant disease, bifurcates to LAD and circumflex. Patent stent noted in LAD. Patent stent noted in ramus intermedius. Circumflex shows some luminal irregularity but no flow-obstructive stenosis noted. LV gram done that shows ejection fraction in the range of 35%. Then, right coronary Xiao guider was taken with side holes as it is dampening the blood pressure without side-hole catheter. Then, attempt was made to cross with over the wire 2-0, 12 sprinter with Luge wire. Mid portion of the artery was successfully crossed and then crossed the RPDA. Then, wire was pulled and through the central hole of balloon, dye was injected to assess the true lumen. In the true lumen, but distal RPDA shows some dissection, which is capped and limited there with the dye not staining into the pericardium. So, at that point, only a plain angioplasty was done of mid RCA with reduction of stenosis from 100% to 0 but since distal RPDA showed some dissection, was limited, at that time the procedure was aborted. The patient was complaining of chest pain. IV Tridil was given. Completely chest pain resolved and bedside stat echo was done. Found to have no pericardial effusion. At that time, the puncture site was closed with Mynx and the patient was transferred to ICU for observation for 4 hours and then will be transferred to telemetry. In summary, following procedures were done: 1. Complete left heart catheterization. 2. Plain balloon angioplasty of mid RCA with reduction of stenosis from 100% to 0 but could not cross RPDA. RECOMMENDATIONS: Continue aspirin and Plavix. Follow up stress test in 6 months. If the patient remains stable, possibly discharge home tomorrow. Zachary Bronson MD cc: Dr. Dawson Zhong MD. Dr. Kapoor. MTDD
--- NOTE | 2018-09-11 09:42 | CARD ---
APPROVED REPORT Date of service: 09/11/2018 EKG Measurement Heart [id number] <Conclusion> Normal sinus rhythm T wave abnormality, consider inferior ischemia Abnormal ECG
--- NOTE | 2018-09-11 14:55 | DS ---
BRIEF HISTORY: This is a 68-year-old female with a past medical history significant for coronary artery disease status post PTCA of LAD and ramus. Yesterday, brought for a staged PTCA of RCA with patient undergoing PTCA of mid to distal RCA and plain balloon angioplasty, distal RCA going through PDA could not be done successfully with controlled session. Postop, the patient developed chest pain requiring IV Nitrinol, the patient is comfortable. Plan is to discharge home. DISCHARGE MEDICATIONS: Include baby aspirin everyday, starting Imdur 30 mg daily, atorvastatin 40 mg daily, aspirin 81 mg daily, lisinopril 5 mg daily, carvedilol 3.125 mg daily. Prescription for Imdur given. FINAL DIAGNOSES: 1. Coronary artery disease. 2. Cardiomyopathy. 3. Hypertension. 4. Hyperlipidemia. Principal procedure done on admission include PTCA and plain balloon angioplasty of right coronary artery, left heart catheterization. LABORATORY DATA: Two days' lab shows the WBC of 5.9, hemoglobin 11.1, hematocrit 32.3, platelet court 152,000. Chemistry shows sodium 130, potassium , chloride 107, carbon dioxide 30, anion gap of 7, BUN 6 and creatinine 0.6. Resume all medications plus Imdur 30 mg daily. Thank you Dr. Zhong for providing us the opportunity in taking care of the patient, Kristal Rushing. Zachary Bronson MD cc: Dawson Zhong MD
== END 2018-09-11 11:53 | disposition home or self-care (01) ==
LOC: CATH 06:28 → ICU 09:24
PROVIDERS: ADMIT Internal Medicine Cardiovascular Disease; ATTEND Internal Medicine Cardiovascular Disease
DX: I25.10 Atherosclerotic heart disease of native coronary artery without angina pectoris (principal); I25.82 Chronic total occlusion of coronary artery; I42.9 Cardiomyopathy, unspecified; I10 Essential (primary) hypertension; J44.9 Chronic obstructive pulmonary disease, unspecified; K22.70 Barrett's esophagus without dysplasia; K58.9 Irritable bowel syndrome, unspecified; K44.9 Diaphragmatic hernia without obstruction or gangrene; E78.5 Hyperlipidemia, unspecified; Z79.02 Long term (current) use of antithrombotics/antiplatelets; Z79.82 Long term (current) use of aspirin; Z95.5 Presence of coronary angioplasty implant and graft
CPT/HCPCS: 36415; 80048; 80061; 84484; 85025; 85027; 85175; 85610; 85730; 86850; 86900; 87081; 92920; 93005; 93306; 93458; 99152; 99153; C1725; C1760; C1769; C1887; C2629; G0378; J1327; J1644; J2250; J2270; J2405; J3010; Q9966; Q9967

== ENCOUNTER 2019-02-16 09:32 | Outpatient (CLI) | payer MEDICARE, OTHER | END 2019-02-16 09:33 | disposition home or self-care (01) | LOC: RAD 09:32 ==